=== PATIENT | female | born 1980 | race African-American/Black ===

== ENCOUNTER 2019-07-08 00:49 | Emergency (ER) | payer OTHER ==
[2019-07-08] MEDS ORDERED: LIDOCAINE 1%/EPI 1:100,000 20 ML VIAL. INJ ONE (01:08)
[2019-07-08] MEDS ORDERED: NEOMY/BACITR/POLYMYXIN OINT PACKET. TP ONE ×2 (01:08→01:35)
[2019-07-08] MEDS ORDERED: LIDOCAINE 1%/EPI 1:100,000 20 ML VIAL. ONE (01:18)
== END 2019-07-08 01:45 | disposition home or self-care (01) ==
LOC: ER 00:49
DX: S01.01XA Laceration without foreign body of scalp, initial encounter (principal); E11.9 Type 2 diabetes mellitus without complications; Z88.0 Allergy status to penicillin; Z88.1 Allergy status to other antibiotic agents; Y08.09XA Assault by strike by other specified type of sport equipment, initial encounter; Y93.89 Activity, other specified; Y92.89 Other specified places as the place of occurrence of the external cause; Y99.8 Other external cause status
CPT/HCPCS: 12001; 99283; J3490